=== PATIENT | female | born 1995 ===

== ENCOUNTER 2016-11-23 22:01 | Emergency (ER) | payer SELFPAY ==
[~2016-11-23] VITALS: Ht 170.2 cm; Wt 63.6 kg
[2016-11-23] MEDS ORDERED: KETOROLAC 60 MG/2 ML (TORADOL) VIAL IM ONE (22:30)
[2016-11-23] MEDS ORDERED: ED- HYDROcodone/ACETAMINOPHEN 5MG/325MG (NORCO) 6 TABLETS/BTL PO ONE (23:00)
[2016-11-23 23:41] VITALS: BP 116/82
== END 2016-11-23 23:20 | disposition home or self-care (01) ==
LOC: ED 22:14
DX: S83.92XA Sprain of unspecified site of left knee, initial encounter (principal); S16.1XXA Strain of muscle, fascia and tendon at neck level, initial encounter; X50.9XXA Other and unspecified overexertion or strenuous movements or postures, initial encounter; X50.1XXA Overexertion from prolonged static or awkward postures, initial encounter; Y93.64 Activity, baseball
CPT/HCPCS: 96372; 99282; J1885; L1830